=== PATIENT | female | born 1940 | race Caucasian/White ===

== ENCOUNTER 2018-01-01 13:00 | Outpatient (RCR) ==
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
--- NOTE | 2018-01-03 13:23 | RS.CXNS ---
Date of scheduled appointment: 01/03/18 Type: Cancel Reason for Cancel/NS: sick
== END 2018-01-03 23:59 ==
PROVIDERS: ATTEND Internal Medicine
DX: M54.9 Dorsalgia, unspecified (principal); M62.830 Muscle spasm of back; V89.2XXD Person injured in unspecified motor-vehicle accident, traffic, subsequent encounter